=== PATIENT | female | born 1970 | race Caucasian/White ===

== ENCOUNTER 2018-08-14 08:11 | Day surgery (SDC) | payer OTHER ==
[~2018-08-14] VITALS: Ht 160 cm; Wt 118.5 kg
[2018-08-14] VITALS (13 sets, daily range): BP systolic 107–136; BP diastolic 55–72; PULSE 67–86; RESP 13–23; Ht 160 cm; Wt 118.5 kg
[~2018-08-14 08:11] MED LIST: CEFAZOLIN 1 GM INJ ONE; DESFLURANE 15 MIN ONE; KETOROLAC 30 MG INJ ONE
[2018-08-14] MEDS ORDERED: CEFAZOLIN 1 GM/50 ML (PMX) 50 ML IVPB ONE (10:00)
[2018-08-14] MEDS ORDERED: SOD CHLORIDE 0.9% 1,000 ML IV SCH (10:00)
[2018-08-14] MEDS ORDERED: PROPOFOL 20 ML ONE ×2 (15:03→16:11)
[2018-08-14] MEDS ORDERED: MIDAZOLAM 1 MG/ML 2 ML INJ ONE (15:03)
[2018-08-14] MEDS ORDERED: SUCCINYLCHOLINE CHLORIDE 100 MG/5 ML SYG IV ONE (15:03)
[2018-08-14] MEDS ORDERED: FENTAnyl 50 MCG/ML VIAL ONE ×2 (15:03→15:29)
[2018-08-14] MEDS ORDERED: ROCURONIUM 50 MG INJ ONE (15:03)
[2018-08-14] MEDS ORDERED: METOCLOPRAMIDE 10 MG INJ ONE (15:24)
[2018-08-14] MEDS ORDERED: ONDANSETRON 4 MG INJ ONE (15:24)
--- NOTE | 2018-08-14 15:46 | PREAC ---
Date/Time of Note Date/Time of Note DATE: 08/14/18 TIME: 15:42 Anesthesia Eval and Record Evaluation Time Pre-Procedure Interview DATE: 08/14/18 TIME: 15:42 Age 47 Sex female NPO: 8 hrs Preoperative diagnosis DCIS Right Breast Planned procedure Needle localized partial mastectomy Past Medical History Past Medical History: Includes Cardio: HTN, Dyslipidemia Psych: Other (morbid obesity , BMI >46) Surgery & Anesthesia Issues No known issue Meds Anticoagulation: No Beta Brittney within 24 hr: Yes No Active Prescriptions or Reported Meds Current Medications Sodium Chloride 1,000 ml @ 75 mls/hr [id number] IV ; Start 08/14/18 at 10:00; Stop 08/14/18 at 23:19 Meds reviewed: Yes Allergies Coded Allergies: No Known Drug Allergies (Unverified Allergy, Unknown, 08/14/18) Allergies Reviewed: Yes Labs/Studies Labs Reviewed: Reviewed by anesthesiologist test: Negative Pre-procedure Exam Last vitals Vital Signs Date Temp Pulse Resp B/P (MAP) Pulse Ox O2 O2 Flow FiO2 Time Delivery Rate 08/14/18 97.8 67 18 107/59 99 Room Air 11:51 (75) Airway: Adequate mouth opening, Adequate thyromental dist (short, fat neck with good mobility) Mallampati: Mallampati II Teeth: Normal Lung: Normal Heart: Normal ASA Physical Status ASA physical status: 3 Emergency: None Planned Anesthetic General/MAC: ETT Planned Pain Management Parenteral pain med, Local by surgeon Pre-operative Attestations Prior to commencing anesthesia and surgery, the patient was re-evaluated, there was verification of: *The patient's identity *The results of appropriate recent lab work and preoperative vital signs *The above evaluation not changing prior to induction *Anesthetic plan, risk benefits, alternative and complications discussed with patient/family; questions answered; patient/family understands, accepts and wishes to proceed. Tiffanie Cobos Aug 14, 2018 15:46
[2018-08-14] MEDS ORDERED: KETOROLAC 30 MG INJ IV PRN (16:00)
[2018-08-14] MEDS ORDERED: DIPHENHYDRAMINE 50 MG INJ IV PRN (16:00)
[2018-08-14] MEDS ORDERED: MEPERIDINE 25 MG INJ IV PRN (16:00)
[2018-08-14] MEDS ORDERED: FENTAnyl 50 MCG/ML VIAL IV PRN (16:00)
[2018-08-14] MEDS ORDERED: HYDROmorphONE 1 MG/5 ML IV SYRINGE IV PRN (16:00)
[2018-08-14] MEDS ORDERED: ONDANSETRON 4 MG INJ IV PRN (16:00)
[2018-08-14] MEDS ORDERED: morphine (1 MG/ML) 10ML SYRINGE IV PRN (16:00)
[2018-08-14] MEDS ORDERED: OXYCODONE/ACETAMINOPHEN (5/325) TAB PO PRN (16:00)
[2018-08-14] MEDS ORDERED: hydrALAzine 20 MG INJ IV PRN (16:00)
[2018-08-14] MEDS ORDERED: LABETALOL HCL 20MG INJ IV PRN (16:00)
[2018-08-14] MEDS ORDERED: ALBUTEROL 0.083% (NEB) 2.5 MG/3 ML AMP HHN PRN (16:00)
[2018-08-14] MEDS ORDERED: METOCLOPRAMIDE 10 MG INJ IV PRN (16:00)
--- NOTE | 2018-08-14 16:07 | SIPON ---
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
--- NOTE | 2018-08-14 16:21 | OPR ---
DATE OF OPERATION: 08/14/2018 PREOPERATIVE DIAGNOSIS: Ductal carcinoma in situ, left breast. POSTOPERATIVE DIAGNOSIS: Ductal carcinoma in situ, left breast. OPERATION PERFORMED: Left needle-directed partial mastectomy. ANESTHESIA: General. ANESTHESIOLOGIST: Bob Hernandez MD SURGEON: Robinson Lee MD ROLL FORMING MACHINE SET UP MECHANIC: Cole Cooper MD INDICATIONS FOR PROCEDURE: The patient is a 47-year-old female who underwent screening mammography a nd was found to have suspicious microcalcifications in the midportion of her left breast. Core biops y revealed ductal carcinoma in situ and complete excision was recommended. DESCRIPTION: The patient consented and was scheduled for surgery. DESCRIPTION OF PROCEDURE: On the morning of surgery, the patient presented to [facility] where she underwent localization of the lesion performed by attending radiologist, Dr. Jhonatan Gill. Subsequently, she was brought to the operating theater. The left breast was p repped and draped in usual sterile fashion. A curvilinear incision was made transversely in location of the 2 wires, which was in the mid superior portion of the breast. Subcutaneous tissue was dissec khushboo with cautery. The skin edges were elevated with skin hooks. Wide circumferential dissection of the tissue associated with the wire then took place. Specimen was elevated and transected; however, it appeared that one of the 2 wires proceeded more deeply into the breast, therefore the first specim en was oriented and sent for radiographic confirmation of capture and the additional specimen which r epresented additional posterior tissue containing the second wire was then elevated and transected an d also sent for radiographic analysis. Both specimens were then sent for permanent pathologic analys is. The wound was irrigated. Residual bleeding was controlled with cautery. Due to the large wound defect, a decision was made to place a #10 flat Julio César-Tejeda drain into the wound. It was brought through the left mid axillary line, cut to size, laid within the wound and it was secured in place wi th 2-0 nylon suture in a standard fashion. The skin was then reapproximated with a deep dermal layer of 4-0 Vicryl sutures, followed by final skin approximation with 5-0 PDS sutures in subcuticular fas hion and Dermabond was applied. The patient tolerated the procedure well. The estimated blood loss was approximately 30 mL. There were no complications and the patient was transported in stable condi tion to the recovery room where circumferential compression dressing was applied. Dictated By: ROBINSON LEE MD TL/NTS Conf#: [id number] DID#: [id number] CC: COLE COOPER MD;*EndCC*
[2018-08-14] MEDS ORDERED: HYDROCODONE/APAP (7.5/325) TAB PO PRN (16:30)
--- NOTE | 2018-08-14 17:25 | PAC ---
Date/Time of Note Date/Time of Note DATE: 08/14/18 TIME: 17:24 Post-Anesthesia Notes Post-Anesthesia Note Last documented vital signs Vital Signs Date Temp Pulse Resp B/P (MAP) Pulse Ox O2 O2 Flow FiO2 Time Delivery Rate 08/14/18 74 20 120/60 98 Room Air 17:00 (80) 08/14/18 6.0 16:35 08/14/18 98.7 16:34 Activity: WNL Respiratory function: WNL Cardiovascular function: WNL Mental status: Baseline Pain reasonably controlled: Yes Hydration appropriate: Yes Nausea/Vomiting absent: Yes Comments pat doing well, ready for D/C to floor / home. Tiffanie Cobos Aug 14, 2018 17:25
== END 2018-08-14 18:10 | disposition home or self-care (01) ==
LOC: SDS 08:11
PROVIDERS: ATTEND Surgery Surgical Oncology
DX: D05.12 Intraductal carcinoma in situ of left breast (principal); E78.5 Hyperlipidemia, unspecified; I10 Essential (primary) hypertension; E66.01 Morbid (severe) obesity due to excess calories
CPT/HCPCS: 19301; J0690; J2250; J2405; J2765; J3010; Z7610; 84703; 88307; J1885

== ENCOUNTER 2018-12-15 08:15 | Day surgery (SDC) | payer OTHER ==
[~2018-12-15] VITALS: Ht 156.2 cm; Wt 119.6 kg
[2018-12-15] VITALS (14 sets, daily range): BP systolic 100–145; BP diastolic 55–84; PULSE 60–87; RESP 10–24; Ht 156.2 cm; Wt 119.6 kg
[~2018-12-15 08:15] MED LIST changes: -CEFAZOLIN 1 GM INJ ONE; +CEFAZOLIN 2 GM/50 ML (PMX) 50 ML IVPB SCH; -DESFLURANE 15 MIN ONE; -KETOROLAC 30 MG INJ ONE; +SOD CHLORIDE 0.9% 1,000 ML IV SCH
[2018-12-15] MEDS ORDERED: HYDR12.58 PO (09:48)
[2018-12-15] MEDS ORDERED: SIMV80TA18 PO (09:48)
--- NOTE | 2018-12-15 13:55 | PREAC ---
Date/Time of Note Date/Time of Note DATE: 12/15/18 TIME: 13:54 Anesthesia Eval and Record Evaluation Time Pre-Procedure Interview DATE: 12/15/18 TIME: 13:54 Age 48 Sex female NPO: 8 hrs Preoperative diagnosis left breast cancer Planned procedure left needle localized partial mastectomy Past Medical History Past Medical History: Includes Cardio: HTN, Dyslipidemia GI: Morbid obesity Surgery & Anesthesia Issues No known issue Meds Anticoagulation: No Beta Brittney within 24 hr: No Reason Beta Brittnye not given: Pt. not on B-Brittney Reported Medications Simvastatin* (Simvastatin*) 80 Mg Tablet, 40 MG PO QHS, #30 TAB 12/15/18 Hydrochlorothiazide* (Hydrochlorothiazide*) 12.5 Mg Tablet, 12.5 MG PO DAILY PRN for SWELLING, #30 TAB 12/15/18 Current Medications Cefazolin Sodium/ Dextrose 50 ml @ 100 mls/hr PRE-OP IVPB ; Start 12/15/18 at 07:00; Stop 12/15/18 at 19:00 Sodium Chloride 1,000 ml @ 75 mls/hr [id number] IV ; Start 12/15/18 at 07:00; Stop 12/15/18 at 19:00 Meds reviewed: Yes Allergies Coded Allergies: No Known Drug Allergies (Verified Allergy, Unknown, 12/15/18) Allergies Reviewed: Yes Labs/Studies Labs Reviewed: Reviewed by anesthesiologist Result Diagram: 12/15/18 0850 12/15/18 0849 Laboratory Tests 12/15/18 08:49 12/15/18 08:50 test: Negative Pre-procedure Exam Last vitals Vital Signs Date Temp Pulse Resp B/P (MAP) Pulse Ox O2 O2 Flow FiO2 Time Delivery Rate 12/15/18 97.5 62 18 111/55 98 Room Air 09:46 (73) Airway: Adequate mouth opening, Adequate thyromental dist Mallampati: Mallampati II Teeth: Normal Lung: Normal Heart: Normal ASA Physical Status ASA physical status: 3 Emergency: None Planned Anesthetic General/MAC: ETT (vs. ), LMA Planned Pain Management Parenteral pain med Pre-operative Attestations Prior to commencing anesthesia and surgery, the patient was re-evaluated, there was verification of: *The patient's identity *The results of appropriate recent lab work and preoperative vital signs *The above evaluation not changing prior to induction *Anesthetic plan, risk benefits, alternative and complications discussed with patient/family; questions answered; patient/family understands, accepts and wishes to proceed. SHAKIR CULLEN MD Dec 15, 2018 13:55
[2018-12-15] MEDS ORDERED: hydrALAzine 20 MG INJ IV PRN (14:00)
[2018-12-15] MEDS ORDERED: DIPHENHYDRAMINE 50 MG INJ IV PRN (14:00)
[2018-12-15] MEDS ORDERED: PROCHLORPERAZINE 10 MG INJ IV PRN (14:00)
[2018-12-15] MEDS ORDERED: OXYCODONE/ACETAMINOPHEN (5/325) TAB PO PRN (14:00)
[2018-12-15] MEDS ORDERED: FENTAnyl 50 MCG/ML VIAL IV PRN (14:00)
[2018-12-15] MEDS ORDERED: LABETALOL HCL 20MG INJ IV PRN (14:00)
[2018-12-15] MEDS ORDERED: ONDANSETRON 4 MG INJ IV PRN (14:00)
[2018-12-15] MEDS ORDERED: MEPERIDINE 25 MG INJ IV PRN (14:00)
[2018-12-15] MEDS ORDERED: HYDROmorphONE 1 MG/5 ML IV SYRINGE IV PRN ×3 (14:00)
[2018-12-15] MEDS ORDERED: PROPOFOL 20 ML ONE ×2 (14:22→14:41)
[2018-12-15] MEDS ORDERED: LIDOCAINE 2% (SDV) 5 ML INJ ONE (14:22)
[2018-12-15] MEDS ORDERED: MIDAZOLAM 1 MG/ML 2 ML INJ ONE (14:22)
[2018-12-15] MEDS ORDERED: ONDANSETRON 4 MG INJ ONE (14:41)
[2018-12-15] MEDS ORDERED: FAMOTIDINE 20 MG INJ ONE (14:41)
[2018-12-15] MEDS ORDERED: CEFAZOLIN 1 GM INJ ONE (14:41)
[2018-12-15] MEDS ORDERED: DEXAMETHASONE 4 MG/ML 5 ML INJ ONE (14:41)
[2018-12-15] MEDS ORDERED: FENTAnyl 50 MCG/ML VIAL ONE (14:47)
[2018-12-15] MEDS ORDERED: HYDROmorphONE 2 MG/ML SYG ONE (14:48)
[2018-12-15] MEDS ORDERED: SUCCINYLCHOLINE CHLORIDE 100 MG/5 ML SYG IV ONE ×2 (14:56→14:59)
[2018-12-15] MEDS ORDERED: PHENYLephrine (100 MCG/ML) 10ML SYG ONE (15:14)
--- NOTE | 2018-12-15 15:32 | SIPON ---
Date/Time of Note Date/Time of Note DATE: 12/15/18 TIME: 15:31 Operative Report Preoperative Diagnosis Ductal carcinoma in situ left breast need for reexcision partial mastectomy Postoperative Diagnosis Same Operation/Procedure Performed Left needle directed reexcision partial mastectomy Surgeon see signature line technical assistant None Anesthesia: general Estimated blood loss: 10 - 50 ml's Transfusion Required none Specimen Left partial mastectomy specimen Grafts/Implants none Complications none FRANCHESKA KAISER MD Dec 15, 2018 15:32
--- NOTE | 2018-12-15 15:53 | PAC ---
Date/Time of Note Date/Time of Note DATE: 12/15/18 TIME: 15:49 Post-Anesthesia Notes Post-Anesthesia Note Last documented vital signs Vital Signs Date Temp Pulse Resp B/P (MAP) Pulse Ox O2 O2 Flow FiO2 Time Delivery Rate 12/15/18 97.5 62 18 111/55 98 Room Air 09:46 (73) Activity: WNL Respiratory function: WNL Cardiovascular function: WNL Mental status: Baseline Pain reasonably controlled: Yes Hydration appropriate: Yes Nausea/Vomiting absent: Yes Comments BP: 139/68 HR: 78 RR: 15 T: 98 Sao2: 98% SHAKIR CULLEN MD Dec 15, 2018 15:53
--- NOTE | 2018-12-15 15:56 | OPR ---
DATE OF OPERATION: 12/15/2018 PREOPERATIVE DIAGNOSIS: Ductal carcinoma in situ, left breast, need for reexcision partial mastectom y. POSTOPERATIVE DIAGNOSIS: Ductal carcinoma in situ, left breast, need for reexcision partial mastecto my. PROCEDURE: Left directed reexcision partial mastectomy. ANESTHESIA: General. ANESTHESIOLOGIST: Rachel Severino MD SURGEON: Robinson Kaiser MD GEAR DESIGN ENGINEER: None. INDICATIONS FOR PROCEDURE: The patient is a 48-year-old female who underwent screening mammography w ho was found to have suspicious lesion. A core biopsy confirmed DCIS. She underwent a needle-direct ed excisional biopsy and found to have inadequate margins. She was counseled as to need for reexcisi on. She consented and was scheduled for surgery. DESCRIPTION OF PROCEDURE: On the morning of surgery, the patient presented to [facility] where she underwent localization of the lesion performed by attending radiologist, Dr. Elvira Rodrigues. Subsequently, she was brought to the operating theater, placed under general anesth esia. The left breast was prepped and draped in usual sterile fashion. The previous surgical incisi onal scar which was directly in the region of the localization wires was reincised with 15-blade scal pel. Subcutaneous tissue was dissected with cautery. Skin edges were then elevated with skin hooks and wide circumferential dissection of the tissue between the [address] down to the pec toralis major fascia. The specimen was then elevated, transected, oriented and sent for radiographic confirmation of capture. Capture was confirmed. The specimen was then sent for permanent pathologi c analysis. The wound was irrigated. Minimal residual bleeding was controlled with cautery and the skin was then reapproximated with 4-0 Vicryl suture in subcuticular fashion and Dermabond was then ap plied to the skin as well as a sterile dressing. The patient tolerated the procedure well. The shailesh mated blood loss was 30 mL. There were no complications and the patient was transported in stable co ndition to the recovery room where circumferential compression dressing was applied. Dictated By: ROBINSON KAISER MD TL/NTS Conf#: [id number] DID#: [id number]
[2018-12-15] MEDS ORDERED: HYDROCODONE/APAP (7.5/325) TAB PO PRN (16:00)
== END 2018-12-15 18:06 | disposition home or self-care (01) ==
LOC: SDS 08:15
PROVIDERS: ATTEND Surgery Surgical Oncology
DX: N64.1 Fat necrosis of breast (principal); I10 Essential (primary) hypertension; E78.5 Hyperlipidemia, unspecified; E66.01 Morbid (severe) obesity due to excess calories; Z68.42 Body mass index [BMI] 45.0-49.9, adult
CPT/HCPCS: 19301; 80053; 84703; 85025; 85610; 85730; 88307; J0690; J1100; J1170; J2250; J2370; J2405; J3010; Z7512; Z7610